=== PATIENT | female | born 1995 | race Two or more races ===

== ENCOUNTER 2021-07-19 14:02 | Emergency (ER) | payer OTHER ==
[~2021-07-19] VITALS: Ht 152.4 cm; Wt 79.4 kg
[2021-07-20] MEDS ORDERED: LABETALOL HCL100 MG PO (07:20)
== END 2021-07-20 07:58 ==
LOC: ER 14:02
DX: O16.1 Unspecified maternal hypertension, first trimester (principal); O26.891 Other specified pregnancy related conditions, first trimester; R10.2 Pelvic and perineal pain; Z3A.10 10 weeks gestation of pregnancy

== ENCOUNTER 2021-09-22 15:01 | Outpatient (CLI) | payer OTHER ==
[~2021-09-22 15:01] MED LIST: AZITHROMYCIN500 MG; LABETALOL HCL100 MG PO
== END 2021-09-22 16:34 | disposition home or self-care (01) ==
LOC: PRENATAL 15:01
PROVIDERS: ATTEND Obstetrics & Gynecology Maternal & Fetal Medicine
DX: O35.0XX0 Maternal care for (suspected) central nervous system malformation in fetus, not applicable or unspecified (principal)

== ENCOUNTER 2021-11-12 01:48 | Emergency (ER) | payer OTHER ==
[~2021-11-12] VITALS: Ht 152.4 cm; Wt 82.1 kg
[2021-11-12] MEDS ORDERED: CETIRIZINE HCL5 MG PO (05:05)
[2021-11-12] MEDS ORDERED: CORTISPORIN EAR10 M1 OT (05:05)
== END 2021-11-12 05:16 | disposition home or self-care (01) ==
LOC: ER 01:48
DX: R42 Dizziness and giddiness (principal); R09.82 Postnasal drip; Z20.822 Contact with and (suspected) exposure to COVID-19; Z88.6 Allergy status to analgesic agent; I10 Essential (primary) hypertension

== ENCOUNTER 2021-11-22 14:04 | Outpatient (CLI) | payer OTHER ==
[~2021-11-22 14:04] MED LIST changes: +CETIRIZINE HCL5 MG PO; +CORTISPORIN EAR10 M1 OT
== END 2021-11-22 15:40 | disposition home or self-care (01) ==
LOC: PRENATAL 14:04
PROVIDERS: ATTEND Obstetrics & Gynecology Maternal & Fetal Medicine
DX: O26.849 Uterine size-date discrepancy, unspecified trimester (principal); O10.019 Pre-existing essential hypertension complicating pregnancy, unspecified trimester; O99.210 Obesity complicating pregnancy, unspecified trimester; Z3A.28 28 weeks gestation of pregnancy

== ENCOUNTER 2021-12-16 10:10 | Outpatient (CLI) | payer OTHER | END 2021-12-16 11:39 | disposition home or self-care (01) | LOC: PRENATAL 10:10 | PROVIDERS: ATTEND Obstetrics & Gynecology Maternal & Fetal Medicine | DX: O26.849 Uterine size-date discrepancy, unspecified trimester (principal); O10.019 Pre-existing essential hypertension complicating pregnancy, unspecified trimester; O99.210 Obesity complicating pregnancy, unspecified trimester; O36.5990 Maternal care for other known or suspected poor fetal growth, unspecified trimester, not applicable or unspecified; Z3A.32 32 weeks gestation of pregnancy ==

== ENCOUNTER 2022-01-06 08:34 | Outpatient (CLI) | payer OTHER | END 2022-01-06 09:51 | disposition home or self-care (01) | LOC: PRENATAL 08:34 | PROVIDERS: ATTEND Obstetrics & Gynecology Maternal & Fetal Medicine | DX: O26.849 Uterine size-date discrepancy, unspecified trimester (principal); O10.019 Pre-existing essential hypertension complicating pregnancy, unspecified trimester; O99.210 Obesity complicating pregnancy, unspecified trimester; O36.5990 Maternal care for other known or suspected poor fetal growth, unspecified trimester, not applicable or unspecified; O41.00X0 Oligohydramnios, unspecified trimester, not applicable or unspecified; Z3A.35 35 weeks gestation of pregnancy; Z88.6 Allergy status to analgesic agent; Z88.8 Allergy status to other drugs, medicaments and biological substances ==

== ENCOUNTER 2022-01-17 09:05 | Outpatient (CLI) | payer OTHER | END 2022-01-17 09:37 | disposition home or self-care (01) | LOC: NST 09:05 | PROVIDERS: ATTEND Specialist | DX: Z34.83 Encounter for supervision of other normal pregnancy, third trimester (principal) ==

== ENCOUNTER 2022-01-19 02:26 | Inpatient (IN) | payer OTHER ==
[~2022-01-19] VITALS: Ht 152.4 cm; Wt 79.4 kg
[2022-01-19] MEDS ORDERED: IRON325 MG PO (02:56)
[2022-01-19] MEDS ORDERED: NIFEDIPINE20 MG PO (02:58)
== END 2022-01-21 12:42 | disposition home or self-care (01) | DRG 833 ==
LOC: OBS/DEL 02:26 → OB/GYN 08:18 → LDR 08:18 → OB/GYN 15:25
PROVIDERS: ADMIT Specialist; ATTEND Specialist
PROC: BW40ZZZ Ultrasonography of Abdomen (ICD-10-PCS; principal; 2022-01-19)
PROC: 4A1HXCZ Monitoring of Products of Conception, Cardiac Rate, External Approach (ICD-10-PCS; 2022-01-19)
PROC: BU4CZZZ Ultrasonography of Uterus and Ovaries (ICD-10-PCS; 2022-01-19)
PROC: BY4FZZZ Ultrasonography of Third Trimester, Single Fetus (ICD-10-PCS; 2022-01-19)
DX: O99.613 Diseases of the digestive system complicating pregnancy, third trimester (principal); K80.50 Calculus of bile duct without cholangitis or cholecystitis without obstruction; Z20.822 Contact with and (suspected) exposure to COVID-19; Z3A.36 36 weeks gestation of pregnancy; K80.20 Calculus of gallbladder without cholecystitis without obstruction; O99.013 Anemia complicating pregnancy, third trimester; D64.89 Other specified anemias

== ENCOUNTER 2022-01-25 18:05 | Inpatient (IN) | payer OTHER ==
[~2022-01-25] VITALS: Ht 152.4 cm; Wt 79.8 kg
[~2022-01-25 18:05] MED LIST changes: +IRON325 MG PO; +NIFEDIPINE20 MG PO
[2022-01-25] MEDS ORDERED: IRON325 MG PO (18:32)
[2022-01-28] MEDS ORDERED: LABETALOL HCL100 MG PO (08:43)
[2022-01-28] MEDS ORDERED: FERROUS SULFAT325 MG PO (08:43)
== END 2022-01-28 17:25 | disposition home or self-care (01) | DRG 806 ==
LOC: OB/GYN 18:05 → LDR 18:05 → OB/GYN 01-27 14:28
PROVIDERS: ADMIT Specialist; ATTEND Specialist
PROC: 4A1HXFZ Monitoring of Products of Conception, Cardiac Rhythm, External Approach (ICD-10-PCS; 2022-01-25)
PROC: 10E0XZZ Delivery of Products of Conception, External Approach (ICD-10-PCS; principal; 2022-01-26)
PROC: 10907ZC Drainage of Amniotic Fluid, Therapeutic from Products of Conception, Via Natural or Artificial Opening (ICD-10-PCS; 2022-01-26)
DX: O36.5930 Maternal care for other known or suspected poor fetal growth, third trimester, not applicable or unspecified (principal); O10.92 Unspecified pre-existing hypertension complicating childbirth; O41.03X0 Oligohydramnios, third trimester, not applicable or unspecified; Z37.0 Single live birth; O90.81 Anemia of the puerperium; D64.9 Anemia, unspecified; Z3A.37 37 weeks gestation of pregnancy

== ENCOUNTER 2022-02-04 15:13 | Inpatient (IN) | payer OTHER ==
[~2022-02-04] VITALS: Ht 152.4 cm; Wt 74.8 kg
[~2022-02-04 15:13] MED LIST changes: +FERROUS SULFAT325 MG PO
== END 2022-02-06 22:39 | disposition home or self-care (01) | DRG 776 ==
LOC: ER 15:13 → MEDJ 02-05 04:23 → MEDI 02-05 04:23
PROVIDERS: ADMIT Internal Medicine; ATTEND Internal Medicine
PROC: BB24ZZZ Computerized Tomography (CT Scan) of Bilateral Lungs (ICD-10-PCS; principal; 2022-02-04)
PROC: 4A033R1 Measurement of Arterial Saturation, Peripheral, Percutaneous Approach (ICD-10-PCS; 2022-02-04)
PROC: B24DZZZ Ultrasonography of Pediatric Heart (ICD-10-PCS; 2022-02-05)
PROC: BW28ZZZ Computerized Tomography (CT Scan) of Head (ICD-10-PCS; 2022-02-05)
PROC: 4A12X4Z Monitoring of Cardiac Electrical Activity, External Approach (ICD-10-PCS; 2022-02-05)
DX: O88.3 Obstetric pyemic and septic embolism (principal); O14.15 Severe pre-eclampsia, complicating the puerperium; O90.81 Anemia of the puerperium; D64.89 Other specified anemias; Z20.822 Contact with and (suspected) exposure to COVID-19; O99.893 Other specified diseases and conditions complicating puerperium; G44.59 Other complicated headache syndrome

== ENCOUNTER 2022-04-19 18:40 | Inpatient (IN) | payer OTHER ==
[~2022-04-19] VITALS: Ht 152.4 cm; Wt 68.5 kg
[2022-04-22] MEDS ORDERED: FAMOTIDINE20 MG/2 M1 IV (08:39)
[2022-04-22] MEDS ORDERED: PEPCID AC20 MG PO (08:42)
== END 2022-04-22 10:37 | disposition home or self-care (01) | DRG 419 ==
LOC: ER 18:40 → SURH 04-20 20:54
PROVIDERS: Surgery; ADMIT Internal Medicine; ATTEND Internal Medicine
PROC: BW40ZZZ Ultrasonography of Abdomen (ICD-10-PCS; 2022-04-19)
PROC: 0WQF4ZZ Repair Abdominal Wall, Percutaneous Endoscopic Approach (ICD-10-PCS; 2022-04-21)
PROC: 0FT44ZZ Resection of Gallbladder, Percutaneous Endoscopic Approach (ICD-10-PCS; principal; 2022-04-21 14:00)
DX: K80.10 Calculus of gallbladder with chronic cholecystitis without obstruction (principal); K80.50 Calculus of bile duct without cholangitis or cholecystitis without obstruction; K43.9 Ventral hernia without obstruction or gangrene; D64.9 Anemia, unspecified; R59.0 Localized enlarged lymph nodes; Z20.822 Contact with and (suspected) exposure to COVID-19